=== PATIENT | male | born 1990 ===

== ENCOUNTER 2020-09-09 17:41 | Emergency (ER) | payer SELFPAY ==
[~2020-09-09] VITALS: Ht 188 cm; Wt 93.6 kg
[2020-09-09 18:14] VITALS: BP 140/74; Ht 188 cm; Wt 93.6 kg
== END 2020-09-09 20:20 | disposition left against medical advice (07) ==
LOC: D.ER 17:41
DX: Z71.1 Person with feared health complaint in whom no diagnosis is made (principal)